=== PATIENT | male | born 1945 | race Caucasian/White ===

== ENCOUNTER 2016-12-05 11:08 | Emergency (ER) | payer BC, OTHER ==
[~2016-12-05] VITALS: Ht 180.3 cm; Wt 90.0 kg
[2016-12-05 11:17] VITALS: Ht 180.3 cm; Wt 90.0 kg
[2016-12-05] MEDS ORDERED: ERYTOPOI BOTH EYES (13:24)
--- NOTE | 2016-12-05 13:31 | ERD ---
ER Documentation Chief Complaint Date/Time DATE: 12/05/16 TIME: 13:25 Chief Complaint LEFT EYE PAIN HPI Patient is a 71-year-old male nondiabetic complaining of bilateral eye redness with crusting and drainage in the morning and increased tearing. This is been for 3 weeks and first it was just in the left eye but now it has also spread to the right eye. She denies any pain or pain with eye movements. He denies any fever. He denies any changes to his vision, blurry vision, or double vision. Recommended [id number] eyedrops which did not help. ROS All systems reviewed and are negative except as per history of present illness. Medications Home Meds Active Scripts Erythromycin* (Erythromycin* Ophthalmic) 1 Applic Oint, 1 APPLIC BOTH EYES QID for 7 Days, EA Prov:SANJAY MCLAIN PA-C 12/05/16 PMhx/Soc Medical and Surgical Hx: pt denies Surgical Hx Hx Cardiac Disorders: Yes (htn) Hx Alcohol Use: Yes Hx Substance Use: No Hx Tobacco Use: No Smoking Status: Never smoker FmHx Family History: No diabetes Physical Exam Vitals Vital Signs Date Time Temp Pulse Resp B/P Pulse Ox O2 Delivery O2 Flow Rate FiO2 12/05/16 11:17 96.9 90 19 176/101 98 Physical Exam Const: [] Head: Atraumatic Eyes: Pupils equal round reactive to light, extraocular movements intact, mild bilateral time injection, no crusting or exudates noted in lashes ENT: Normal External Ears, Nose and Mouth. Neck: Full range of motion..~ No meningismus. Resp: Clear to auscultation bilaterally Cardio: Regular rate and rhythm, no murmurs Procedures/MDM 71-year-old male nondiabetic presents with history physical exam findings consistent with conjunctivitis. He is well-appearing in no distress and has no visual changes. His examination is otherwise normal. He is discharged with prescription for erythromycin ophthalmic ointment as well as outpatient referral to ophthalmology. Low suspicion for iritis, uveitis, glaucoma, orbital or periorbital cellulitis.Recommended this patient follow up with her primary care doctor within 48 hours or return to the emergency room for any worsening of symptoms. However this time I do believe there is suitable for outpatient management. I answered all their questions and they agreed with the plan and were discharged home. Departure Diagnosis: Primary Impression: Conjunctivitis Condition: Stable Patient Instructions: Conjunctivitis, Non-Specific Referrals: [facility] Hours: Mon - Fri 9:00 AM - 5:00 PM Additional Instructions: Call your primary care doctor TOMORROW for an appointment during the next 1-2 days.See the doctor sooner or return here if your condition worsens before your appointment time. SANJAY MCLAIN PA-C Dec 05, 2016 13:31
[2016-12-05 13:53] VITALS: BP 148/78; RESP 18
[2016-12-08] MEDS ORDERED: CEPH500C PO (17:14)
[2016-12-08] MEDS ORDERED: LISI10TA2 PO (17:14)
== END 2016-12-05 13:59 | disposition home or self-care (01) ==
LOC: FTE 11:08
DX: H10.9 Unspecified conjunctivitis (principal); I10 Essential (primary) hypertension
CPT/HCPCS: 99283

== ENCOUNTER 2016-12-08 15:14 | Emergency (ER) | END 2016-12-08 17:28 | disposition home or self-care (01) | DX: I10 Essential (primary) hypertension (principal) ==